=== PATIENT | male | born 1975 | race Asian ===

== ENCOUNTER 2016-05-02 14:55 | Outpatient (CLI) | payer OTHER | END 2016-05-02 20:02 | disposition home or self-care (01) | LOC: MRD 14:55 | PROVIDERS: ATTEND Emergency Medicine | DX: R05 Cough (principal); R07.9 Chest pain, unspecified ==

== ENCOUNTER 2017-02-26 20:20 | Emergency (ER) | payer BC, OTHER ==
[~2017-02-26] VITALS: Ht 177.8 cm; Wt 83.9 kg
[2017-02-26 20:29] VITALS: BP 146/101
--- NOTE | 2017-02-26 20:33 | NUR ---
AMBULATED TO ER BED 12
--- NOTE | 2017-02-26 20:37 | NUR ---
42Y M BIB SELF C/O CELLULITIS TO THE LEFT PORTILLO X 4 DAYS. SKIN IS WARM AND TENDER TO TOUCH. PT DENIES ANY N/V/D, SOB, CP AT THE MOMENT. PT AAOX4. BREATHING IS UNLABORED. PT AMBULATED TO ER BED WITH STEADY GAIT
[2017-02-26] MEDS ORDERED: ACETAMINOPHEN EXTRA STRENGTH 500 MG TAB ONE (20:48)
[2017-02-26] MEDS ORDERED: IBUPROFEN 800 MG TAB ONE (20:49)
[2017-02-26] MEDS ORDERED: KETOROLAC 30 MG/ML VIAL IVP ONE (21:15)
[2017-02-26] MEDS ORDERED: CLINDAMYCIN 900 MG in DEXTROSE 5% 100 ML IV ONE (21:15)
[2017-02-26] MEDS ORDERED: NACL 0.9% 1,000 ML IV ONE (21:15)
[2017-02-26] MEDS ORDERED: VAS10 PO (21:19)
[2017-02-26] MEDS ORDERED: POTA10TE30 PO (21:19)
[2017-02-26] MEDS ORDERED: FURO-572 PO (21:19)
[2017-02-26] MEDS ORDERED: CARV25TA PO (21:19)
[2017-02-26] MEDS ORDERED: SPIR50TA PO (21:19)
[2017-02-26] MEDS ORDERED: CLINDAMYCIN 900 MG/6 ML VIAL IV ONE (21:32)
[2017-02-26 21:59] LABS: BASOPHILS # (AUTO) 0.2 K/uL (0.00-0.22); EOSINOPHILS # (AUTO) 0.5 K/uL (0-0.4); EOSINOPHILS % (AUTO) 2.9 % (0.0-4.0); HEMATOCRIT 43.6 % (36-52); HEMOGLOBIN 14.4 g/dL (12.0-18.0); LYMPHOCYTES # (AUTO) 1.3 K/uL (2.0-11.5); LYMPHOCYTES % (AUTO) 7.6 % (20.5-51.1); MEAN CORPUSCULAR HEMOGLOBIN 31 pg (27-31); MEAN CORPUSCULAR HGB CONC 33 g/dL (33-37); MEAN CORPUSCULAR VOLUME 92 fL (80-94); MONOCYTES # (AUTO) 1.4 K/uL (0.8-1.0); MONOCYTES % (AUTO) 8.3 % (1.7-9.3); NEUTROPHILS % (AUTO) 80.2 % (42.2-75.2); PLATELET COUNT (AUTO) 276 K/uL (140-450); RED BLOOD CELL COUNT(AUTO) 4.74 MIL/uL (4.20-6.10); RED CELL DISTRIBUTION WIDTH 13.5 % (11.6-13.7); WHITE BLOOD COUNT (AUTO) 17.4 K/uL (4.8-10.8)
[2017-02-26 22:15] LABS: ANION GAP 14.3 (8-16); CARBON DIOXIDE 26.3 mmol/L (21-32); CREATININE 1.1 mg/dL (0.7-1.3); POTASSIUM 3.6 mmol/L (3.5-5.1)
[2017-02-26 22:20] LABS: PROTHROMBIN TIME 9.8 secs (10.8-13.4)
[2017-02-26 22:26] LABS: ALBUMIN 3.4 g/dL (3.4-5.0); TOTAL BILIRUBIN 0.7 mg/dL (0.0-1.0)
--- NOTE | 2017-02-26 23:05 | NUR ---
IV removed, catheter intact and site benign. Applied folded 4x4 gauze and tape to stop bleeding.
[2017-02-26 23:06] VITALS: BP 132/98
--- NOTE | 2017-02-26 23:06 | NUR ---
Patient discharged with v/s stable. Written and verbal after care instructions given and explained. Patient alert, oriented and verbalized understanding of instructions. Ambulatory with steady gait. All questions addressed prior to discharge. ID band removed. Patient advised to follow up with PMD. Rx of CLEOCIN 300MG AND KEFLEX 500MG, MOTRIN 800MG given. Patient educated on indication of medication including possible reaction and side effects. Opportunity to ask questions provided and answered.
== END 2017-02-26 23:12 | disposition home or self-care (01) ==
LOC: MED 20:20
DX: L03.116 Cellulitis of left lower limb (principal); L03.115 Cellulitis of right lower limb; I10 Essential (primary) hypertension
CPT/HCPCS: 36415; 80053; 82948; 83880; 85025; 85610; 85730; 87040; 90471; 90715; 96365; 96375; 99285; J1885; J3490; J7030